=== PATIENT | male | born 1995 | race Caucasian/White ===

== ENCOUNTER 2021-01-11 16:40 | Emergency (ER) | payer OTHER ==
[~2021-01-11] VITALS: Ht 175.3 cm; Wt 72.6 kg
[~2021-01-11 16:40] MED LIST: CEPHALEXIN 500500 M3 PO; LORTABELXR PO; NOHOMEMEDICATIONS; PENICILLIN VK500 MG PO; PROAIR HFA8.5 GM IH; TRAMADOL 50 MG50 MG PO; ZPAK PO
[2021-01-11] MEDS ORDERED: PENICILLIN V P500 MG PO (18:06)
[2021-01-11] MEDS ORDERED: NORCO5 PO (18:06)
[2021-01-11] MEDS ORDERED: IBUPROFEN 800800 M1 PO (18:06)
[2021-01-11 18:14] VITALS: BP 125/54
== END 2021-01-11 18:14 | disposition home or self-care (01) ==
LOC: M.ERS 16:40
DX: K04.7 Periapical abscess without sinus (principal); J45.909 Unspecified asthma, uncomplicated